=== PATIENT | female | born 1990 | race Caucasian/White ===

== ENCOUNTER → 2016-11-19 11:02 | Outpatient (CLI) | payer OTHER ==
[2016-12-12 14:23] LABS: HISTOPLASMA GAL MANNAN AG SER 0.18
== END | disposition home or self-care (01) ==
LOC: D.RAD 11:02
PROVIDERS: Student in an Organized Health Care Education/Training Program
DX: R05 Cough (principal); R61 Generalized hyperhidrosis

== ENCOUNTER → 2016-12-31 14:09 | Outpatient (CLI) | payer OTHER ==
[2017-02-23 14:09] LABS: ACID FAST CULTURE Negative (())
== END | disposition home or self-care (01) ==
LOC: D.LABREF 14:09
PROVIDERS: Student in an Organized Health Care Education/Training Program
DX: R61 Generalized hyperhidrosis (principal); R05 Cough